=== PATIENT | male | born 1970 | race Caucasian/White ===

== ENCOUNTER 2019-04-10 13:14 | Inpatient (IN) | payer OTHER ==
--- NOTE | 2019-04-10 15:30 | HP ---
[facility] Rehab Assess/Revision - Admission History Admitted to Rehab from: [facility] - Findings Detox History & Physical reviewed: Yes Concur with findings: Yes Inpatient Rehab Admission - Rehab Decision to Admit Inpatient rehab admission?: Yes - Initial Determination Are CD services needed?: Yes Free of communicable disease: Yes Not in need of hospitalization: Yes - Rehab Admission Criteria Previous failed treatment: Yes Poor recovery environment: Yes Comorbidities: Yes Lacks judgement: Yes Patient is meeting Inpatient Rehab admission criteria:: Yes
[2019-04-10] MEDS ORDERED: LOPERAMIDE HCL 2 MG CAPSULE PO PRN (15:31)
[2019-04-10] MEDS ORDERED: NICOTINE POLACRILEX 4 MG GUM BUC PRN (15:31)
[2019-04-10] MEDS ORDERED: guaiFENesin 200 MG/10 ML 10 ML UNIT-DOSE CUPS PO PRN (15:31)
[2019-04-10] MEDS ORDERED: MAG HYDROX/AL HYDROX/SIMETH 30 ML UNIT-DOSE CUP PO PRN (15:31)
[2019-04-10] MEDS ORDERED: MAGNESIUM HYDROX 2400MG/30ML ORAL SUSPENSION 30 ML CUP PO PRN (15:31)
[2019-04-10] MEDS ORDERED: MENTHOL/PHENOL 1 EACH UD MM PRN (15:31)
[2019-04-10] MEDS ORDERED: P-EPHED 60MG/TRIPROLIDI 2.5MG TABLET PO PRN (15:31)
[2019-04-10] MEDS ORDERED: MAGNESIUM CITRATE 300 ML BOTTLE PO PRN (15:31)
[2019-04-10] MEDS: THIAMINE HCL 100 MG TABLET (FP) PO SCH (21:47)
[2019-04-10] MEDS ORDERED: MELATONIN 5 MG TABLETS PO PRN (22:00)
[2019-04-11] MEDS: NICOTINE 21 MG/24 HOURS TOPICAL PATCH TD SCH (10:11)
[2019-04-11] MEDS: PRENATAL VITAMINS W/ FOLIC ACID TABLET (FP) PO SCH (10:12)
[2019-04-11] MEDS: THIAMINE HCL 100 MG TABLET (FP) PO SCH (21:41)
[2019-04-12] MEDS: NICOTINE 21 MG/24 HOURS TOPICAL PATCH TD SCH (10:39)
[2019-04-12] MEDS: PRENATAL VITAMINS W/ FOLIC ACID TABLET (FP) PO SCH (10:39)
--- NOTE | 2019-04-12 11:30 | PN ---
[facility] Progress Note Note: BELOW IS NURSE SUBSTANCE ABUSE LOG ON MR MARCO ANTONIO LUCIANO. PT REPORTS HE WAS UNABLE TO INFORM ADMITTING PROVIDER ABOUT THIS INFORMATION BECAUSE HE WAS "UNDER THE INFLUENCE AND TIRED AT THE TIME". TODAY PT REPORTS HE WAS ON SUBOXONE SL BEGINNING OF FEBRUARY THEN TRANSITIONED TO SUBLOCADE INJ. ON 03/08/19 OR 03/09/19(NOT QUITE SURE) AT PROGRAM NAMED "ELE8". REPORTS HE WAS SUPPOSED TO GET NEXT DOSE AT [facility] REFERRAL SITE AFTER ELE8 BUT NO REHAB BED WAS AVAILABLE [facility] AFTER WHICH HE RELAPSED THEREAFTER AND CAME HERE FOR DETOX. This report was requested by: Melany Holcomb | Reference #: [id number] You have not added a LUCIA number. Keeping your LUCIA number(s) up to date on the My LUCIA Numbers page will enable the separation of your prescriptions from others ' in the search results. Others' Prescriptions Patient Name: Francisco J Luciano Date: 1970 Address: [place] [address] Sex: Male Rx Written Rx Dispensed Drug Quantity Days Supply Prescriber Name 03/07/2019 03/08/2019 suboxone 8 mg-2 mg sl film 30 30 Carolina Alvarez NP 11/15/2018 11/15/2018 buprenorphine-naloxone 8-2 mg sl tablet 14 14 Carolina Alvarez NP 11/09/2018 11/09/2018 suboxone 4 mg-1 mg sl film 12 6 Carolina Alvarez NP 11/09/2018 11/09/2018 diazepam 10 mg tablet 10 5 Carolina Alvarez NP Patient Name: Francisco J Luciano Date: 1970 Address: [address] [place] [address] Sex: Male Rx Written Rx Dispensed Drug Quantity Days Supply Prescriber Name 03/05/2019 03/08/2019 sublocade 300 mg/1.5 ml syring 1gm 28 Carolina Alvarez NP 11/20/2018 11/29/2018 sublocade 300 mg/1.5 ml syring 1gm 28 Carolina Alvarez NP Patient Name: Francisco J Luciano Date: 1970 Address: [address] [place] [address] Sex: Male Rx Written Rx Dispensed Drug Quantity Days Supply Prescriber Name 02/12/2019 02/12/2019 buprenorphine-naloxone 8-2 mg sl film 90 30 Carmen Vidal Patient Name: Francisco J Luciano Date: 1970 Address: [facility] [place] [address] Sex: Male Rx Written Rx Dispensed Drug Quantity Days Supply Prescriber Name 01/04/2019 01/15/2019 buprenorphine-naloxone 8-2 mg sl film 20 10 Ana Eason Patient Name: Francisco J Luciano Date: 1970 Address: [address] [place] [id number] Sex: Male Rx Written Rx Dispensed Drug Quantity Days Supply Prescriber Name 11/08/2018 11/08/2018 suboxone 8 mg-2 mg sl film 14 7 Kong Cobb MD * - Drugs marked with an asterisk are compound drugs. If the compound drug is made up of more than one controlled substance, then each controlled substance will be a separate row in the table. D/W PT WILL EVALUATE FOR SUBOXONE SL MAT HERE. INFORMED PT WILL NOT RECEIVE SUBLOCADE INJ. HERE THIS IS NOT AVAILABLE HERE YET. TO FOLLOW UP WITH COUNSELOR FOR AFTERCARE REFERRAL AFTER REHAB HERE.
--- NOTE | 2019-04-12 13:43 | PN ---
[facility] COWS - Scale Resting Pulse: 0= IA 80 or Below Sweatin= Chills/Flushing Restless Observation: 3= Extraneous Movement (RESTLESS KNEES) Pupil Size: 0= Normal to Room Light Bone or Joint Aches: 4=Acute Joint/Muscle Pain Runny Nose/ Eye Tearin= None GI Upset > 30mins: 0= None Tremor Observation of Outstretched Hands: 0= None Yawning Observation: 0= None Anxiety or Irritability: 1=Feels Anxious/Irritable Goose Flesh Skin: 0=Smooth Skin COWS Score: 9 [facility] Progress Note (SOAP) Subjective: PT ADMITTED TO REHAB ON 03/26/19 AFTER COMPLETION OF DETOX. PT ADMITTED TO DETOX ON 03/22/19. SEE PREVIOUS ENTRY FOR DESIGNER ARCHITECT LOG. PT C/O DISCOMFORT, MUSCLE AND JOINT PAIN, HOT/ COLD CHILLS, RESTLESS KNEES, CRAVINGS. WANTS TO GET BACK ON SUBOXONE. Objective: 04/12/19 13:42 Vital Signs 04/12/19 07:56 Temperature 98.1 F Pulse Rate 50 L Respiratory 18 Rate Blood Pressure 100/51 L Assessment: 04/12/19 13:42 PROTRACTED W/S DRUG CRAVINGS Plan: D/W PT UDS TO BE DONE IN AM BEFORE RESTARTING SUBOXONE. FOLLOW UP WITH COUNSELOR FOR CD AFTERCARE AND CONTINUATION OF MAT WHEN RESTARTED HERE.
[2019-04-12] MEDS: ACETAMINOPHEN 325 MG TABLET (FP) PO PRN (16:04)
[2019-04-12] MEDS: THIAMINE HCL 100 MG TABLET (FP) PO SCH (21:54)
[2019-04-13] MEDS: NICOTINE 21 MG/24 HOURS TOPICAL PATCH TD SCH (09:37)
[2019-04-13] MEDS: hydrOXYzine PAMOATE 50 MG CAPSULE (FP) PO PRN (09:37)
[2019-04-13] MEDS: PRENATAL VITAMINS W/ FOLIC ACID TABLET (FP) PO SCH (09:37)
[2019-04-13] MEDS ORDERED: BUPRENORPHINE/NALOXONE 2 MG/0.5 MG FILM PACKET SL ONE ×2 (12:49→17:00)
--- NOTE | 2019-04-13 12:59 | PN ---
[facility] COWS - Scale Resting Pulse: 0= NM 80 or Below Sweatin= Chills/Flushing Restless Observation: 3= Extraneous Movement Pupil Size: 0= Normal to Room Light Bone or Joint Aches: 4=Acute Joint/Muscle Pain Runny Nose/ Eye Tearin= Runny Nose/Eyes GI Upset > 30mins: 0= None Tremor Observation of Outstretched Hands: 0= None Yawning Observation: 0= None Anxiety or Irritability: 2=Irritable/Anxious Goose Flesh Skin: 0=Smooth Skin COWS Score: 12 [facility] Progress Note (SOAP) Subjective: PT STILL C/O W/S AND DISCOMFORT. MET WITH HIS COUNSELOR TODAY TO DISCUSS AFTERCARE REFERRAL SITES. Objective: 04/13/19 12:58 Vital Signs - 24 hr 04/13/19 04/13/19 04/13/19 00:30 03:30 06:33 Temperature 98.0 F Pulse Rate 56 L Respiratory 17 17 16 Rate Blood Pressure 111/58 L 04/13/19 11:15 Temperature 98.2 F Pulse Rate 69 Respiratory 18 Rate Blood Pressure 96/63 Assessment: 04/13/19 12:55 PROTRACTED W/S CRAVINGS Plan: START SUBOXONE 2 MG/0.5 MG SL NOW RE-EVALUATE PT FOR INCREASED DOSE IF NEEDED. PT WILL BE REFERRED TO CD AFTERCARE TO CONTINUE WITH MAT AFTER REHAB TREATMENT PER COUNSELOR CADY ROMO.
[2019-04-13] MEDS: IBUPROFEN 400 MG TABLET (FP) PO PRN (15:12)
[2019-04-13] MEDS: THIAMINE HCL 100 MG TABLET (FP) PO SCH (22:16)
[2019-04-14] MEDS: IBUPROFEN 400 MG TABLET (FP) PO PRN ×2 (08:37→16:03)
[2019-04-14] MEDS ORDERED: BUPRENORPHINE/NALOXONE 2 MG/0.5 MG FILM PACKET SL SCH (10:00)
[2019-04-14] MEDS: BUPRENORPHINE/NALOXONE 2 MG/0.5 MG FILM PACKET SL SCH (10:12)
[2019-04-14] MEDS: PRENATAL VITAMINS W/ FOLIC ACID TABLET (FP) PO SCH (10:12)
[2019-04-14] MEDS: hydrOXYzine PAMOATE 50 MG CAPSULE (FP) PO PRN (10:13)
[2019-04-14] MEDS: NICOTINE 21 MG/24 HOURS TOPICAL PATCH TD SCH (10:13)
[2019-04-14] MEDS: THIAMINE HCL 100 MG TABLET (FP) PO SCH (21:41)
[2019-04-15] MEDS: IBUPROFEN 400 MG TABLET (FP) PO PRN ×3 (00:03→21:49)
[2019-04-15] MEDS: ACETAMINOPHEN 325 MG TABLET (FP) PO PRN (08:32)
[2019-04-15] MEDS: hydrOXYzine PAMOATE 50 MG CAPSULE (FP) PO PRN (09:20)
[2019-04-15] MEDS: PRENATAL VITAMINS W/ FOLIC ACID TABLET (FP) PO SCH (09:20)
[2019-04-15] MEDS: BUPRENORPHINE/NALOXONE 2 MG/0.5 MG FILM PACKET SL SCH (09:20)
[2019-04-15] MEDS: NICOTINE 21 MG/24 HOURS TOPICAL PATCH TD SCH (10:15)
[2019-04-15] MEDS: THIAMINE HCL 100 MG TABLET (FP) PO SCH (21:50)
[2019-04-16] MEDS: NICOTINE 21 MG/24 HOURS TOPICAL PATCH TD SCH (10:42)
[2019-04-16] MEDS: hydrOXYzine PAMOATE 50 MG CAPSULE (FP) PO PRN (10:42)
[2019-04-16] MEDS: PRENATAL VITAMINS W/ FOLIC ACID TABLET (FP) PO SCH (10:42)
[2019-04-16] MEDS: BUPRENORPHINE/NALOXONE 2 MG/0.5 MG FILM PACKET SL SCH (10:43)
--- NOTE | 2019-04-16 11:07 | PN ---
S Progress Note Note: pt requests an increase and wants to go up to 8 mg/2m suboxone sl once daily for now. Will re-evaluate till stabilized. alert o x 3. OOB ambulating with steady gait. Vital Signs 04/16/19 04/16/19 03:30 06:28 Temperature 98.0 F Pulse Rate 57 L Respiratory 18 16 Rate Blood Pressure 111/53 L protracted w/s plan:increase suboxone 8 mg/2 mg sl daily.
[2019-04-16] MEDS: THIAMINE HCL 100 MG TABLET (FP) PO SCH (21:42)
[2019-04-17] MEDS: BUPRENORPHINE/NALOXONE 8 MG/2 MG FILM PACKET SL SCH (10:14)
[2019-04-17] MEDS: NICOTINE 21 MG/24 HOURS TOPICAL PATCH TD SCH (10:14)
[2019-04-17] MEDS: PRENATAL VITAMINS W/ FOLIC ACID TABLET (FP) PO SCH (10:15)
[2019-04-17] MEDS: hydrOXYzine PAMOATE 50 MG CAPSULE (FP) PO PRN (10:16)
[2019-04-17] MEDS: THIAMINE HCL 100 MG TABLET (FP) PO SCH (22:12)
[2019-04-18] MEDS: IBUPROFEN 400 MG TABLET (FP) PO PRN (06:16)
[2019-04-18] MEDS: NICOTINE 21 MG/24 HOURS TOPICAL PATCH TD SCH (10:13)
[2019-04-18] MEDS: PRENATAL VITAMINS W/ FOLIC ACID TABLET (FP) PO SCH (10:13)
[2019-04-18] MEDS: BUPRENORPHINE/NALOXONE 8 MG/2 MG FILM PACKET SL SCH (10:13)
[2019-04-18] MEDS: THIAMINE HCL 100 MG TABLET (FP) PO SCH (21:36)
--- NOTE | 2019-04-19 09:55 | PN ---
[facility] Progress Note Note: PT REQUESTING TO INCREASE SUBOXONE TO 8 MG/2MG SL BID TODAY. REPORTS SLIGHT ANXIETY, IRRITABILITY, CHILLS. Vital Signs - 24 hr 04/18/19 04/19/19 04/19/19 10:00 00:30 03:30 Pulse Rate 58 L Respiratory 18 18 Rate Blood Pressure 102/60 04/19/19 07:05 Pulse Rate 59 L Respiratory 18 Rate Blood Pressure 92/61 PLAN:INCREASE SUBOXONE 8MG/2 MG SL BID@1000,1800. INCREASE PO FLUIDS.
[2019-04-19] MEDS: PRENATAL VITAMINS W/ FOLIC ACID TABLET (FP) PO SCH (10:13)
[2019-04-19] MEDS: BUPRENORPHINE/NALOXONE 8 MG/2 MG FILM PACKET SL SCH ×2 (10:13→17:31)
[2019-04-19] MEDS: NICOTINE 21 MG/24 HOURS TOPICAL PATCH TD SCH (10:13)
[2019-04-19] MEDS: THIAMINE HCL 100 MG TABLET (FP) PO SCH (21:35)
[2019-04-19] MEDS: IBUPROFEN 400 MG TABLET (FP) PO PRN (21:35)
[2019-04-20] MEDS: PRENATAL VITAMINS W/ FOLIC ACID TABLET (FP) PO SCH (10:36)
[2019-04-20] MEDS: BUPRENORPHINE/NALOXONE 8 MG/2 MG FILM PACKET SL SCH ×2 (10:36→17:26)
[2019-04-20] MEDS: NICOTINE 21 MG/24 HOURS TOPICAL PATCH TD SCH (10:36)
[2019-04-20] MEDS: THIAMINE HCL 100 MG TABLET (FP) PO SCH (21:53)
[2019-04-21] MEDS: NICOTINE 21 MG/24 HOURS TOPICAL PATCH TD SCH (10:03)
[2019-04-21] MEDS: PRENATAL VITAMINS W/ FOLIC ACID TABLET (FP) PO SCH (10:03)
[2019-04-21] MEDS: BUPRENORPHINE/NALOXONE 8 MG/2 MG FILM PACKET SL SCH ×2 (10:03→17:56)
[2019-04-21] MEDS: THIAMINE HCL 100 MG TABLET (FP) PO SCH (21:54)
[2019-04-22] MEDS: NICOTINE 21 MG/24 HOURS TOPICAL PATCH TD SCH (09:56)
[2019-04-22] MEDS: BUPRENORPHINE/NALOXONE 8 MG/2 MG FILM PACKET SL SCH ×2 (09:56→17:24)
[2019-04-22] MEDS: PRENATAL VITAMINS W/ FOLIC ACID TABLET (FP) PO SCH (09:56)
[2019-04-22] MEDS: THIAMINE HCL 100 MG TABLET (FP) PO SCH (21:37)
[2019-04-23] MEDS: PRENATAL VITAMINS W/ FOLIC ACID TABLET (FP) PO SCH (10:23)
[2019-04-23] MEDS: BUPRENORPHINE/NALOXONE 8 MG/2 MG FILM PACKET SL SCH ×2 (10:24→17:34)
[2019-04-23] MEDS: NICOTINE 21 MG/24 HOURS TOPICAL PATCH TD SCH (10:25)
--- NOTE | 2019-04-23 11:10 | PN ---
[facility] Progress Note (SOAP) Subjective: PT IS SCHEDULED TO DISCHARGE TOMORROW. PT MET WITH COUNSELOR, CADY ROMO AND HAS BEEN REFERRED TO [facility] AWAITING BED AVAILABILITY AT [facility] FOR CD AFTERCARE TREATMENT. PT ALSO REFERRED TO FOLLOW UP WITH MEDICAL/SUBOXONE-MAT AT [facility] ON [address], [place]. PT IS ALERT O X 3. DENIES S/H/I. Objective: 04/23/19 11:17 Vital Signs - 24 hr 04/23/19 04/23/19 04/23/19 00:30 03:30 07:09 Temperature 97.5 F L Pulse Rate 57 L Respiratory 18 18 16 Rate Blood Pressure 110/69 Home Medications Medication Instructions Recorded Buprenorphine/Naloxone [Suboxone 1 each SL BID #14 packet MDD 2 04/23/19 8Mg/2Mg Sl Film -] Naloxone HCl [Narcan] 4 mg NS ONCE #1 spray 04/23/19 Assessment: 04/23/19 11:18 NAD MEDICALLY STABLE Plan: FOLLOW UP WITH CD AFTERCARE RECOMMENDATION. FOLLOW UP WITH PRIMARY CARE AT [facility] WITHIN 1- 2 WEEKS AFTER DISCHARGE.
[2019-04-23] MEDS: THIAMINE HCL 100 MG TABLET (FP) PO SCH (21:34)
[2019-04-24 06:54] VITALS: BP 133/74; PULSE 69; TEMP 97.8
[2019-04-24] MEDS: PRENATAL VITAMINS W/ FOLIC ACID TABLET (FP) PO SCH (09:02)
[2019-04-24] MEDS: BUPRENORPHINE/NALOXONE 8 MG/2 MG FILM PACKET SL SCH (09:02)
[2019-04-24] MEDS: NICOTINE 21 MG/24 HOURS TOPICAL PATCH TD SCH (09:30)
--- NOTE | 2019-04-24 11:32 | PN ---
S Progress Note Note: PT WAS DISCHARGED TODAY IN STABLE CONDITION. ALERT O X 3. NAD. Vital Signs - 24 hr 04/24/19 04/24/19 04/24/19 00:30 03:30 06:53 Temperature 97.8 F Pulse Rate 69 Respiratory 18 18 16 Rate Blood Pressure 133/74
== END 2019-04-24 10:00 | disposition home or self-care (01) | DRG 772 ==
LOC: YASAS 13:14 → Y5N 13:15
PROVIDERS: ADMIT Neuromusculoskeletal Medicine & OMM; ATTEND Neuromusculoskeletal Medicine & OMM
PROC: HZ42ZZZ Group Counseling for Substance Abuse Treatment, Cognitive-Behavioral (ICD-10-PCS; principal; 2019-04-10)
DX: F11.20 Opioid dependence, uncomplicated (principal); F14.10 Cocaine abuse, uncomplicated; F17.200 Nicotine dependence, unspecified, uncomplicated; Z51.81 Encounter for therapeutic drug level monitoring; Z91.013 Allergy to seafood; Z59.0 Homelessness